=== PATIENT | male | born 1995 | race African-American/Black ===

== ENCOUNTER 2018-05-18 13:14 | Emergency (ER) | payer SELFPAY ==
[~2018-05-18] VITALS: Ht 185.4 cm; Wt 72.6 kg
[2018-05-18 13:14] VITALS: BP 130/82
[2018-05-18] MEDS ORDERED: IBUP-1060 PO (13:50)
[2018-05-18] MEDS ORDERED: AMOX500T PO (13:50)
[2018-05-18] MEDS ORDERED: PRED50TA PO (13:50)
--- NOTE | 2018-05-18 13:50 | PHYS DOC ---
Past Medical History Past Medical History: No Pertinent History Past Surgical History: No Surgical History Alcohol Use: None Drug Use: None Adult General Chief Complaint Chief Complaint: SORE THROAT HPI HPI Patient is a 23 year old male who presents with sore throat. This started 5 days ago and has been getting worse over time. Patient has had subjective fevers. Increased pain with swallowing. Patient has been out of town and has been unable to take his temperature due to travel. Patient is able to swallow albeit with pain. No relief with ibuprofen nor Chloraseptic products.[] Review of Systems Review of Systems Constitutional: Denies fever or chills [] Eyes: Denies change in visual acuity, redness, or eye pain [] HENT: Denies nasal congestion, see history of present illness[] Respiratory: Denies cough or shortness of breath [] Cardiovascular: No chest pain or palpitations[] GI: Denies abdominal pain, nausea, vomiting, bloody stools or diarrhea [] : Denies dysuria or hematuria [] Musculoskeletal: Denies back pain or joint pain [] Integument: Denies rash or skin lesions [] Neurologic: Denies headache, focal weakness or sensory changes [] Endocrine: Denies polyuria or polydipsia [] All other systems were reviewed and found to be within normal limits, except as documented in this note. Allergies Allergies Allergies Coded Allergies Type Severity Reaction Last Updated Verified No Known Drug Allergies 05/18/18 No Physical Exam Physical Exam Constitutional: Well developed, well nourished, no acute distress, non-toxic appearance. [] HENT: Normocephalic, atraumatic, bilateral external ears normal, oropharynx moist, increased tonsils bilaterally, uvula is midline, exudate on bilateral tonsils, nose normal. [] Eyes: PERRLA, EOMI, conjunctiva normal, no discharge. [] Neck: Normal range of motion, no tenderness, supple, no stridor. Anterior chain lymphadenopathy is present, no meningismus [] Cardiovascular:Heart rate regular rhythm, no murmur [] Lungs & Thorax: Bilateral breath sounds clear to auscultation [] Abdomen: Bowel sounds normal, soft, no tenderness, no masses, no pulsatile masses. No hepato-or splenomegaly [] Skin: Warm, dry, no erythema, no rash. [] Back: No tenderness, no CVA tenderness. [] Extremities: No tenderness, no cyanosis, no clubbing, ROM intact, no edema. [] Neurologic: Alert and oriented X 3, normal motor function, normal sensory function, no focal deficits noted. [] Psychologic: Affect normal, judgement normal, mood normal. [] Current Patient Data Vital Signs Vital Signs Date Time Temp Pulse Resp B/P (MAP) Pulse Ox O2 Delivery O2 Flow Rate FiO2 05/18/18 13:14 100.2 104 18 130/82 (98) 96 Room Air 100.2 EKG EKG [] Radiology/Procedures Radiology/Procedures [] Course & Med Decision Making Course & Med Decision Making Pertinent Labs and Imaging studies reviewed. (See chart for details) Medical decision making: Patient appears to have an exudative pharyngitis, no evidence peritonsillar abscess nor retropharyngeal abscess. No evidence meningitis or encephalitis. No evidence of by mouth intolerance.[] Dragon Disclaimer Dragon Disclaimer This electronic medical record was generated, in whole or in part, using a voice recognition dictation system. Departure Departure Impression: Primary Impression: Exudative pharyngitis Disposition: 01 HOME, SELF-CARE Condition: IMPROVED Referrals: NO PCP (PCP) Patient Instructions: Viral and Bacterial Pharyngitis Additional Instructions: Drink plenty of fluids. Follow-up with your regular doctor in 2 days. If you do not have a regular doctor list of local clinics will be provided for you. Take your medication as prescribed. Return to the ER if unable to swallow or any other concerns. Scripts Amoxicillin (AMOXICILLIN) 500 Mg Tablet 500 MG PO TID, #30 TAB 0 Refills Prov: SLADE ESTEVEZ DO 05/18/18 Ibuprofen (IBUPROFEN) 800 Mg Tablet 800 MG PO PRN TID PRN for MILD PAIN / TEMP, #20 TAB take with food or milk to avoid upsetting stomach Prov: SLADE ESTEVEZ DO 05/18/18 Prednisone (PREDNISONE) 50 Mg Tablet 50 MG PO DAILY for 7 Days, #7 TAB Prov: SLADE ESTEVEZ DO 05/18/18 SLADE ESTEVEZ DO May 18, 2018 13:50
== END 2018-05-18 13:58 | disposition home or self-care (01) ==
LOC: ER 13:14
DX: J02.9 Acute pharyngitis, unspecified (principal); R50.9 Fever, unspecified
CPT/HCPCS: 99283